=== PATIENT | male | born 1995 | race Caucasian/White ===

== ENCOUNTER 2017-06-23 15:21 | Emergency (ER) | payer OTHER, SELFPAY ==
--- NOTE | 2017-06-23 15:52 | RAD ---
TWO VIEWS OF THE RIGHT FOREARM 06/23/17 COMPARISON: None. HISTORY: Moving a toilet for a job and cut right forearm with right forearm pain. FINDINGS: Two views of the right forearm shows no evidence of acute fracture or dislocation. No radiopaque fore ign body is seen. There appears to be a laceration along the mid portion of the volar forearm. IMPRESSION: No evidence of acute osseous abnormality. POS: [facility]
[2017-06-23] MEDS ORDERED: Bacitracin Zinc 1 Packet ONE (16:26)
== END 2017-06-23 16:29 | disposition home or self-care (01) ==
LOC: ERS 15:21
DX: S51.811A Laceration without foreign body of right forearm, initial encounter (principal); F17.210 Nicotine dependence, cigarettes, uncomplicated; W45.8XXA Other foreign body or object entering through skin, initial encounter
CPT/HCPCS: 12001